=== PATIENT | female | born 1950 | race Caucasian/White ===

== ENCOUNTER → 2020-03-08 | Outpatient (CLI) | payer MEDICARE, OTHER ==
[~2020-03-08] MED LIST: ALEN10TA8 PO; CITA20TA9 PO; CLON1TAB23 PO; LEVO25TA4 PO; MULT-245 PO; OMEG500C PO; OXYC1TAB15 PO; VIT1TABL2 PO
--- NOTE | 2020-03-08 16:59 | RAD ---
INDICATION: Pelvic mass on outside examination COMPARISON: None. TECHNIQUE: Grayscale and color ultrasound images uterus and adnexa. Transabdominal and transvaginal images obtained. Transvaginal images were needed to better visualize structures that were limited on transabdominal imaging. FINDINGS: Uterus: 60 x 34 x 17 mm. Endometrial Stripe: 2 mm. Right Ovary: 25 x 19 x 12 mm. Left Ovary: 39 x 28 x 32 mm. Vascular flow identified to bilateral ovaries. Hypoechoic structure at the right ovary measuring 14 x 11 mm. Hypoechoic lesion suspected at the left adnexa measuring 35 x 23 mm with some flow along the periphery. A portion of this could be secondary to ovarian tissue with associated hypoechoic lesion IMPRESSION: * Suspected hypoechoic lesion at the left adnexa which could be associated with the left ovary. Could be from a cystic lesion but incompletely evaluated. Further workup option includes either obtaining a MRI to further assess the internal architecture for complex component or if the patient does not want to proceed with MRI at this time a short interval follow-up ultrasound should be obtained to ensure no growth. There is also a hypoechoic lesion at the right ovary which has a smaller size. Electronically signed by: Keenan Ventura MD (03/08/2020 4:56 PM) [id number]
== END | disposition home or self-care (01) ==
LOC: US 14:23
PROVIDERS: ATTEND Internal Medicine
DX: N83.8 Other noninflammatory disorders of ovary, fallopian tube and broad ligament (principal)
CPT/HCPCS: 76830; 76856